=== PATIENT | male | born 1965 | race Hispanic/Latino ===

== ENCOUNTER 2022-01-02 11:09 | Emergency (ER) | payer OTHER ==
[~2022-01-02] VITALS: Ht 177.8 cm; Wt 98.9 kg
[2022-01-02 12:46] VITALS: BP 145/75
[2022-01-02] MEDS ORDERED: IBUP-2070 PO (12:53)
[2022-01-02] MEDS ORDERED: IBUPROFEN 600 MG TABLET PO ONE (13:00)
== END 2022-01-02 13:06 | disposition home or self-care (01) ==
LOC: EDH 11:09
DX: S20.212A Contusion of left front wall of thorax, initial encounter (principal); W01.0XXA Fall on same level from slipping, tripping and stumbling without subsequent striking against object, initial encounter; Y93.89 Activity, other specified; Y92.89 Other specified places as the place of occurrence of the external cause; Y99.8 Other external cause status
CPT/HCPCS: 71100

== ENCOUNTER 2022-09-27 01:01 | Emergency (ER) | payer OTHER ==
[~2022-09-27] VITALS: Ht 175.3 cm; Wt 97.5 kg
[~2022-09-27 01:01] MED LIST: IBUP-2070 PO
[2022-09-27 02:36] VITALS: BP 145/80
[2022-09-27] MEDS ORDERED: DIPHENHYDRAMINE HCL 25 MG CAPSULE ONE (02:57)
[2022-09-27] MEDS ORDERED: DIPHENHYDRAMINE HCL 25 MG CAPSULE PO ONE (03:00)
== END 2022-09-27 03:16 | disposition left against medical advice (07) ==
LOC: EDH 01:01
DX: L29.9 Pruritus, unspecified (principal); Z53.21 Procedure and treatment not carried out due to patient leaving prior to being seen by health care provider
CPT/HCPCS: Q0163

== ENCOUNTER 2023-02-18 12:40 | Emergency (ER) | payer OTHER ==
[~2023-02-18] VITALS: Ht 177.8 cm; Wt 97.5 kg
[2023-02-18 16:05] VITALS: BP 140/76
== END 2023-02-18 19:07 | disposition left against medical advice (07) ==
LOC: EDH 12:40
DX: M54.2 Cervicalgia (principal); Z53.21 Procedure and treatment not carried out due to patient leaving prior to being seen by health care provider
CPT/HCPCS: 99281

== ENCOUNTER 2023-04-09 08:18 | Emergency (ER) | payer OTHER ==
[~2023-04-09] VITALS: Ht 177.8 cm; Wt 98.9 kg
[2023-04-09 08:29] VITALS: BP 147/89; PULSE 68; RESP 18; O2SAT 97
[2023-04-09] MEDS ORDERED: POLY10DR22 OP (09:05)
== END 2023-04-09 10:00 | disposition home or self-care (01) ==
LOC: EDH 08:18
DX: H10.31 Unspecified acute conjunctivitis, right eye (principal); Z98.890 Other specified postprocedural states

== ENCOUNTER 2024-03-11 14:33 | Emergency (ER) | payer OTHER ==
[~2024-03-11] VITALS: Ht 177.8 cm; Wt 94.8 kg
[~2024-03-11 14:33] MED LIST changes: +POLY10DR22 OP
[2024-03-11] MEDS: CLINDAMYCIN IVPB 300MG/50ML 50 ML IV SCH (15:45)
[2024-03-11] MEDS: FENTANYL CITRATE PF 50 MCG/1 ML 2ML VIAL IVP ONE (15:45)
[2024-03-11] MEDS: LIDOCAINE HCL 1% 20 ML VIAL INJ SCH (15:46)
[2024-03-11] MEDS ORDERED: CLIN-141 PO (16:45)
[2024-03-11] MEDS ORDERED: TRAM50TA4 PO (16:50)
[2024-03-11 17:09] VITALS: BP 150/90; PULSE 80; RESP 16; O2SAT 98
== END 2024-03-11 17:39 | disposition home or self-care (01) ==
LOC: EDH 14:33
DX: L02.214 Cutaneous abscess of groin (principal); L02.413 Cutaneous abscess of right upper limb
CPT/HCPCS: 99284; 10061; 96365; J3010; J3490; 96375

== ENCOUNTER 2024-05-17 09:28 | Emergency (ER) | payer OTHER ==
[~2024-05-17] VITALS: Ht 177.8 cm; Wt 94.3 kg
[~2024-05-17 09:28] MED LIST changes: +CLIN-141 PO; +TRAM50TA4 PO
[2024-05-17 10:17] LABS: APPEARANCE,URINE CLEAR (CLEAR); BILIRUBIN,URINE NEGATIVE (NEGATIVE); COLOR,URINE LIGHT-YELLOW (YELLOW); GLUCOSE, URINE (UA) >=1000 mg/dL (NEGATIVE); KETONES,URINE NEGATIVE (NEGATIVE); LEUKOCYTE ESTERASE ,URINE NEGATIVE Leu/uL (NEGATIVE); NITRATE,URINE NEGATIVE (NEGATIVE); OCCULT BLOOD,URINE NEGATIVE (NEGATIVE); PH,URINE 5.5 (5.0-8.0); PROTEIN,URINE NEGATIVE (NEGATIVE); UROBILINOGEN,URINE 0.2 mg/dL (0.2-1.0)
[2024-05-17 10:18] LABS: ADD UA MICROSCOPIC YES
[2024-05-17 10:18] LABS: MEAN CORPUSCULAR HEMOGLOBIN 29.8 pg (27.0-33.0); MEAN CORPUSCULAR HGB CONC 35.9 g/dL (32.0-36.0); MEAN CORPUSCULAR VOLUME 82.9 fL (79-99); RED BLOOD CELL COUNT(AUTO) 5.31 MIL/uL (4.50-6.20); RED CELL DISTRIBUTION WIDTH 11.9 % (11.0-15.5); WHITE BLOOD COUNT (AUTO) 8.6 K/uL (4.8-10.8)
[2024-05-17 10:26] LABS: MUCUS,URINE RARE LPF (None Seen); RBC,URINE 0-1 /HPF (0-1); WBC,URINE 0-1 /HPF (0-1)
[2024-05-17 10:33] LABS: CREATININE 0.8 mg/dL (0.5-1.3); POTASSIUM 3.9 mmol/L (3.5-5.1)
[2024-05-17] MEDS: 0.9%NACL 1000ML 1,000 ML IV ONE (11:22)
[2024-05-17] MEDS: INSULIN humuLIN R 100 UNIT/ML 3ML IV ONE (11:28)
[2024-05-17] MEDS: INSULIN humuLIN R 100 UNIT/ML 3ML SQ ONE (12:42)
[2024-05-17 13:39] VITALS: BP 147/78; PULSE 73; RESP 18; TEMP 97.7; O2SAT 97
[2024-05-17] MEDS ORDERED: METF-444 PO (14:00)
== END 2024-05-17 14:20 | disposition home or self-care (01) ==
LOC: EDH 09:28
DX: E11.65 Type 2 diabetes mellitus with hyperglycemia (principal); Z79.84 Long term (current) use of oral hypoglycemic drugs
CPT/HCPCS: 99284; 96374; 96361; 80048; 85027; 82948 ×2; 81001; 36415; 96372; J1815; J7030

== ENCOUNTER → 2024-08-23 | Emergency (ER) | payer SELFPAY ==
[~2024-08-23] VITALS: Ht 177.8 cm; Wt 92.1 kg
[~2024-08-23] MED LIST changes: +CLOT15CR23 TP; +METF-444 PO; +MUPI22OI2 TP
--- NOTE | 2024-08-23 12:30 | NUR ---
ASSUMED CARE AT THIS TIME.
--- NOTE | 2024-08-23 13:44 | ERN ---
General Chief Complaint: Penis Problem Stated Complaint: RASH Time Seen by MD: 11:32 Time Seen by Midlevel: 11:32 Source: patient History of Present Illness Initial Comments 59-year-old male with a past medical history of type 2 diabetes presenting to the department with pain and redness the tip of his penis. This started a couple of days ago and has progressively worsened so he decided to report to the ER for further evaluation. Denies any dysuria/hematuria, or any other symptoms at this time. Patient is unsure what his sugar levels have been at home. Denies any other symptoms at this time. Allergies: Coded Allergies: No Known Drug Allergies (Unverified Allergy, Unknown, 01/02/22) Home Meds Active Scripts Metformin HCl (Metformin HCl) 500 Mg Tablet, 500 MG PO BID for 30 Days, #60 TAB Prov:IDALIA MAHONEY MD 05/17/24 Tramadol Hcl (Tramadol HCl) 50 Mg Tablet, 50 MG PO Q6HPRN PRN for PAIN LEVEL 5 TO 10 for 5 Days, #20 TAB Prov:CHIRSTINE CASSIDY MD 03/11/24 Clindamycin HCl (Clindamycin HCl) 300 Mg Capsule, 300 MG PO QID for 10 Days, #40 CAP Prov:CHRISTINE CASSIDY MD 03/11/24 Polymyxin B Sulf/Trimethoprim (Polytrim Eye Drops) 10 Ml Drops, 10 ML OP QID for 7 Days, #2 DROP 0 Refills Prov:GABRIELLA PACKER Sr., MD 04/09/23 Ibuprofen (Ibuprofen) 600 Mg Tablet, 600 MG PO Q6H PRN for PAIN, #15 TAB Prov:CYRIL EVANS 01/02/22 Past Medical History Past Medical History: Diabetes-Type II Past Surgical History: None Surgical History Other: LT INGUINAL HERNIA REPAIR Social History Social History: Negative ROS Dictation CONSTITUTIONAL: Negative except for HPI HEAD/FACE: Negative except for HPI EENT: Negative except for HPI RESPIRATORY: Negative except for HPI GASTROINTESTINAL/ABDOMINAL: Negative except for HPI GENITOURINARY: Negative except for HPI MUSCULOSKELETAL: Negative except for HPI INTEGUMENTARY: Negative except for HPI NEUROLOGICAL/PSYCH: Negative except for HPI HEMATOLOGIC/LYMPHATIC: Negative except for HPI All Systems Negative, Except as noted above. 13 point review of systems assessed and all negative except for above. Physical Exam Physical Exam Dictation Vital Signs reviewed General Appearance: Alert, oriented x 3, no acute distress, well developed, nourished. Head and Face: non-traumatic. Eyes: PERRL, pink conjunctivas, eyelid no trauma, anterior chamber with arcus senilis. Ears: Pinnas intact and no signs of trauma or erythema ear canals clear and no discharge TM no erythema Nose: No discharge, no bleeding. Oropharynx: Mouth normal, tongue pink, pharynx clear,no erythema, tonsils no exudates, no abscesses noted, mucous membrane moist Neck: Supple, non-tender, no thyromegaly, no masses, no JVD, no bruits Breast:Deferred Chest:No tenderness, no crepitus, no paradoxical movement, no retractions Lungs:Clear, well-ventilated, symmetric, no rales, no wheezing, no rhonchi, no stridor, good breath sounds bilaterally Heart: Regular rate, regular rhythm, no murmur, no gallops Vascular: no peripheral edema, Abdomen: Soft, positive bowel sounds, nondistended, no guarding, nontender, no rebound, no masses no hepatomegaly, no splenomegaly, no Gordillo's sign, no hernias. Rectal: Deferred Genital: Deferred Neurological: Normal speech, motor function intact, sensory function intact Musculoskeletal: Neck nontender, full range of motion, back nontender, full range of motion, Extremities: nontender, full range of motion Skin: Color pink, dry, no turgor, no rash, no lacerations, no abrasions, no contusions. Lymphatic: Deferred MDM MDM: 59-year-old male with a past medical history of type 2 diabetes presenting to the department with pain and redness the tip of his penis. This started a couple of days ago and has progressively worsened so he decided to report to the ER for further evaluation. Denies any dysuria/hematuria, or any other symptoms at this time. Patient is unsure what his sugar levels have been at home. Denies any other symptoms at this time. On physical examination patient is in no acute distress. Initial vital signs are stable. Patient is afebrile and nontoxic appearing. Genital urinary examination was performed with MARYSOL Day at bedside. His physical examination is consistent with balanitis. The patient will be given clotrimazole and mupirocin cream for outpatient management. Patient was advised to control blood sugars at home. He specifically denies any hematuria and dysuria. Denies being sexually active and is not concerned for any sexually transmitted disease at this time. Differential diagnosis: Balanitis, urinary tract infection, syphilis There are no social concerns with this patient. Prescription drug management Prescriptions will include: Medical management and examination interpretation discussions were had by me with other qualified healthcare professionals as indicated for the patient's care. ED Course Vital Signs Date Time Temp Pulse Resp B/P (MAP) Pulse Ox O2 Delivery O2 Flow Rate FiO2 08/23/24 11:22 98.1 73 20 155/77 99 Room Air 0 DX & DISP Disposition: Discharge Departure Impression: Primary Impression: Balanitis Condition: Stable Scripts Mupirocin (Mupirocin Ointment) 2 % Oint 1 APPL TP BID for 5 Days, #15 GM 0 Refills apply to affected area(s) Prov: AKIKO BRAGG 08/23/24 Clotrimazole (Clotrimazole) 1 % Cream..g. 1 APPL TP BID for 7 Days, #15 GM 0 Refills apply to affected area(s) Prov: AKIKO BRAGG 08/23/24 Additional Instructions: Your physical examination is consistent with balanoposthitis. This is an inflammation of the glans/foreskin of the penis. This is most likely due to poor hygiene and uncontrolled diabetes. I have given you a prescription for two creams which should help with your symptoms over the next couple of days. Please cleaned between forced clean and glans of penis with a Q-tip in irrigate with water into the results. You may attempt Sitz baths twice a day while inflammation persist. Follow up with the primary care doctor in 2-3 days for repeat evaluation. Retu rn to the ER for any new or worsening symptoms. Referrals: SELF,REFERRAL (PCP) Time of Disposition: 13:36 I have reviewed the case, and I agree with, Diagnosis and Plan AKIKO BRAGG Aug 23, 2024 13:43
[2024-08-23 13:53] VITALS: BP 155/91; PULSE 85; RESP 20; TEMP 98.5; O2SAT 98
== END ==
LOC: EDH 11:04
DX: N48.1 Balanitis (principal); E11.9 Type 2 diabetes mellitus without complications; Z98.890 Other specified postprocedural states; Z79.84 Long term (current) use of oral hypoglycemic drugs; Z79.899 Other long term (current) drug therapy
CPT/HCPCS: 99283